=== PATIENT | male | born 1945 | race Caucasian/White ===

== ENCOUNTER 2016-12-31 19:35 | Emergency (ER) | payer MEDICARE, BC ==
[2016-12-31 20:25] VITALS: BP 149/92
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
--- NOTE | 2017-01-01 13:46 | CR ---
EXAM DATE: 12/31/16 PATIENT'S AGE: 71 Patient: BRADFORD EDGARTOWNSIMONE Facility: [place], [place] Site . Site : 1945 Study: XRay Spine Lumbar [id number]/[id number] 9:08:55 PM Ordering Physician: Bridgette Multani Final Report: HISTORY: Pain. Technique: Lumbar spine 3 views. Comparison: None. Findings: Counting reference: Lumbosacral junction. Five lumbar type vertebral bodies. Alignment is maintained. Mild superior endplate deformities of L4 and L5 vertebral bodies. Vertebral body heights are otherwise maintained. Mild multilevel disc degenerative changes. Lumbar facet degenerative changes. Aortic atherosclerotic is fixation. Impression: Age-indeterminate mild superior endplate compression deformities of L3 and L4 vertebral bodies. Multilevel degenerative changes. Dictated by Steve Charles MD @ Dec 31 2016 9:21PM (Electronic Signature) Report Signed by Proxy. SAMARA
== END 2016-12-31 21:55 | disposition home or self-care (01) ==
LOC: MW.ED 19:35
DX: S39.012A Strain of muscle, fascia and tendon of lower back, initial encounter (principal); S30.0XXA Contusion of lower back and pelvis, initial encounter; V86.99XA Unspecified occupant of other special all-terrain or other off-road motor vehicle injured in nontraffic accident, initial encounter
CPT/HCPCS: 72100; 72100-26; 99282; 99283